=== PATIENT | male | born 1980 | race Caucasian/White ===

== ENCOUNTER 2020-05-01 10:33 | Inpatient (IN) | payer OTHER ==
--- NOTE | 2020-05-01 10:48 | BHS.RME ---
Substance Use & Tx History - Substance Use History Alcohol Substance amount: 1 pint vodka + beers Frequency of use: Daily Nicotine Substance amount: 1.5 pack Frequency of use: Daily Substance route: Smoking Date of Last Use: 05/01/20 Physical/Psych/Mental Status - Behavior General Behavior: Increased activity (restlessness, agitation) Eye Contact: Normal - Cooperativeness Cooperativeness: Cooperative - Thinking Thought Processes: Tight, Logical, Goal Directed Thought content: Future oriented - Physical Health Problems Is patient presently having any pain?: No Does patient presently have any injuries (include location): No Does patient currently have a fever: No Is patient : No CIWA Nausea/Vomitin-No Nausea/No Vomiting Muscle Tremors: 1-None Visible, but [place] Anxiety: 0-No Anxiety, at Ease Agitation: 0-Normal Activity Paroxysmal Sweats: 1-Minimal Palms Moist Orientation: 0-Oriented Tacttile Disturbances: 0-None Auditory Disturbances: 0-None Visual Disturbances: 0-None Headache: 0-None Present CIWA-Ar Total Score: 2
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
[2020-05-01] MEDS ORDERED: ONDANSETRON *ODT* 4 MG TABLET SL PRN (12:02)
[2020-05-01] MEDS ORDERED: ACETAMINOPHEN 325 MG TABLET (FP) PO PRN ×2 (12:02)
[2020-05-01] MEDS ORDERED: MAG HYDROX/AL HYDROX/SIMETH 30 ML UNIT-DOSE CUP PO PRN (12:02)
[2020-05-01] MEDS ORDERED: BISMUTH SUBSALICYLATE 524 MG/30 ML UD PO PRN (12:02)
[2020-05-01] MEDS ORDERED: MAGNESIUM CITRATE 300 ML BOTTLE PO PRN (12:02)
[2020-05-01] MEDS ORDERED: NICOTINE POLACRILEX 2 MG GUM BUC PRN (12:02)
[2020-05-01] MEDS ORDERED: MENTHOL/PHENOL 1 EACH UD MM PRN (12:02)
[2020-05-01] MEDS ORDERED: IBUPROFEN 400 MG TABLET (FP) PO PRN (12:02)
--- NOTE | 2020-05-01 12:43 | EKG ---
Test Reason : Blood Pressure : / mmHG Vent. Rate : 084 BPM Atrial Rate : 084 BPM P-R Int : 152 ms QRS Dur : 102 ms QT Int : 388 ms P-R-T Axes : 062 004 024 degrees QTc Int : 458 ms NORMAL SINUS RHYTHM INCOMPLETE RBBB BORDERLINE ECG Confirmed by MD MARTHA, KODY ([id number]) on 05/01/2020 12:43:19 PM Referred By: Confirmed By:KODY THOMAS MD
[2020-05-01 13:30] VITALS: BMI 26.6
[2020-05-01] MEDS: hydrOXYzine PAMOATE 25 MG CAPSULE (FP) PO SCH ×3 (14:22→21:34)
[2020-05-01] MEDS: NICOTINE 21 MG/24 HOURS TOPICAL PATCH TD SCH (14:27)
--- NOTE | 2020-05-01 14:43 | CONSULT ---
[facility] Psychiatric Consult - Data Date of interview: 05/01/20 Admission source: [facility] Identifying data: Mr Guzman is a 39 years old male, unemployed, homeless seeking detox treatment for alcohol Substance Abuse History: Reports history of alcohol use. Refer to addiction counselor's summary for further information Medical History: Unremarkable. Smokes cigarettes 1-1.5 ppd Psychiatric History: This is patient's first admission to this facility. He reports that his first psychiaric contact occured in December [address] Pacheco in [place], [place], diagnosed with Bipolar Disorder and started on Seroquel. Reports psychiatric treatment on & off since. Reports one psychiatric hospitalization in July 2019 at [facility] for suicidal attempt by ingesting sleeping pills. Reports 3 previous ED admissions. Most recent ED admission was in [facility] [place] in December 2019 for suicidal attempt by ingesting Seroquel. Reports that he is not currently receiving psychiatric treatment and has been off medication since discharged from [facility] in December 2019. At present, denies experiencing psychotic, manic symptoms, S/H ideations. However, reports feeling depressed and sleeping poorly. Patient is unwilling to take any psychotropic medication Physical/Sexual Abuse/Trauma History: Denies history of abuse as a child or DV relationship Mental Status Exam - Mental Status Exam Alert and Oriented to: Time, Place, Person Cognitive Function: Fair Patient Appearance: Disheveled Mood: Depressed, Anxious Affect: Appropriate Patient Behavior: Cooperative Speech Pattern: Clear Voice Loudness: Normal Thought Process: Intact, Goal Oriented Thought Disorder: Not Present Hallucinations: Denies Suicidal Ideation: Denies Homicidal Ideation: Denies Insight/Judgement: Poor Sleep: Fair Appetite: Good Muscle strength/Tone: Normal Gait/Station: Normal Psychiatric Findings - Problem List ([place] 1, 2,3) (1) MDD (major depressive disorder), recurrent episode, moderate Current Visit: Yes Status: Chronic (2) Bipolar II disorder Current Visit: Yes Status: Ruled-out (3) Alcohol-induced mood disorder Current Visit: Yes Status: Acute (4) Alcohol-induced anxiety disorder Current Visit: Yes Status: Acute (5) Alcohol-induced sleep disorder Current Visit: Yes Status: Acute (6) Alcohol dependence, uncomplicated Current Visit: Yes Status: Acute (7) Nicotine dependence Current Visit: Yes Status: Chronic - Initial Treatment Plan Initial Treatment Plan: Continue inpatient detoxification
[2020-05-01] MEDS: chlordiazePOXIDE HCL 25 MG CAPSULE PO SCH ×2 (16:47→22:04)
[2020-05-01 16:50] LABS: HEMATOCRIT 45.1 % (35.4-49); HEMOGLOBIN 15.2 GM/dL (11.7-16.9); MCH 33.1 pg (25.7-33.7); MCHC 33.8 g/dl (32.0-35.9); MEAN PLT VOLUME 7.5 fl (7.5-11.1); PLATELET COUNT 210 K/MM3 (134-434); RDW 15.8 % (11.9-15.9); WHITE BLOOD COUNT 5.2 K/mm3 (4.0-10.0)
[2020-05-01 17:01] LABS: ALBUMIN 4.2 g/dl (3.4-5.0); BILIRUBIN,TOTAL 0.5 mg/dL (0.2-1); BLOOD UREA NITROGEN 5.6 mg/dL (7-18); CALCIUM 8.5 mg/dL (8.5-10.1); CREATININE 0.9 mg/dL (0.55-1.3); POTASSIUM 4.4 mmol/L (3.5-5.1); TOT PROT 7.7 g/dl (6.4-8.2)
[2020-05-01] MEDS: chlordiazePOXIDE HCL 25 MG CAPSULE PO PRN (20:15)
[2020-05-01] MEDS: THIAMINE HCL 100 MG TABLET (FP) PO SCH (21:34)
[2020-05-01] MEDS: MELATONIN 5 MG TABLETS PO SCH (21:35)
[2020-05-02] MEDS: hydrOXYzine PAMOATE 25 MG CAPSULE (FP) PO SCH ×5 (05:42→22:00)
[2020-05-02] MEDS: chlordiazePOXIDE HCL 25 MG CAPSULE PO SCH ×4 (05:42→22:00)
[2020-05-02] MEDS: NICOTINE 21 MG/24 HOURS TOPICAL PATCH TD SCH (10:20)
[2020-05-02] MEDS: PRENATAL VITAMINS W/ FOLIC ACID TABLET (FP) PO SCH (10:20)
[2020-05-02] MEDS: chlordiazePOXIDE HCL 25 MG CAPSULE PO PRN (13:18)
--- NOTE | 2020-05-02 14:06 | PN ---
S CIWA - CIWA Score Nausea/Vomitin Muscle Tremors: 2 Anxiety: 2 Agitation: 2 Paroxysmal Sweats: No Perspiration Orientation: 0-Oriented Tacttile Disturbances: 1-Very Mild Itch/Numbness Auditory Disturbances: 0-None Visual Disturbances: 0-None Headache: 1-Very Mild CIWA-Ar Total Score: 10 S Progress Note (SOAP) Subjective: alert,irritable,anxious,interrupted sleep,tremor,pain in the body and back,nausea Objective: 05/02/20 14:04 Vital Signs Temperature 97.1 F L 05/02/20 08:41 Pulse Rate 85 05/02/20 08:41 Respiratory Rate 18 05/02/20 08:41 Blood Pressure 144/92 05/02/20 08:41 O2 Sat by Pulse Oximetry (%) 97 05/02/20 08:41 Laboratory Last Values WBC 5.2 K/mm3 (4.0-10.0) 05/01/20 12:00 RBC 4.60 M/mm3 (4.00-5.60) 05/01/20 12:00 Hgb 15.2 GM/dL (11.7-16.9) 05/01/20 12:00 Hct 45.1 % (35.4-49) 05/01/20 12:00 MCV 98.0 fl (80-96) H 05/01/20 12:00 MCH 33.1 pg (25.7-33.7) 05/01/20 12:00 MCHC 33.8 g/dl (32.0-35.9) 05/01/20 12:00 RDW 15.8 % (11.9-15.9) 05/01/20 12:00 Plt Count 210 K/MM3 (134-434) 05/01/20 12:00 MPV 7.5 fl (7.5-11.1) 05/01/20 12:00 Sodium 138 mmol/L (136-145) 05/01/20 12:00 Potassium 4.4 mmol/L (3.5-5.1) 05/01/20 12:00 Chloride 101 mmol/L (98-107) 05/01/20 12:00 Carbon Dioxide 27 mmol/L (21-32) 05/01/20 12:00 Anion Gap 10 MMOL/L (8-16) 05/01/20 12:00 BUN 5.6 mg/dL (7-18) L 05/01/20 12:00 Creatinine 0.9 mg/dL (0.55-1.3) 05/01/20 12:00 Est GFR (CKD-EPI)AfAm 122.52 05/01/20 12:00 Est GFR (CKD-EPI)NonAf 105.71 05/01/20 12:00 Random Glucose 82 mg/dL (74-106) 05/01/20 12:00 Calcium 8.5 mg/dL (8.5-10.1) 05/01/20 12:00 Total Bilirubin 0.5 mg/dL (0.2-1) 05/01/20 12:00 AST 63 U/L (15-37) H 05/01/20 12:00 ALT 55 U/L (13-61) 05/01/20 12:00 Alkaline Phosphatase 83 U/L (45-117) 05/01/20 12:00 Total Protein 7.7 g/dl (6.4-8.2) 05/01/20 12:00 Albumin 4.2 g/dl (3.4-5.0) 05/01/20 12:00 Syphilis Serology Non-reactive (NONREACTIVE) 05/01/20 12:00 Assessment: 05/02/20 14:05 withdrawal symptom Plan: continue detox librium regimen
[2020-05-02] MEDS: THIAMINE HCL 100 MG TABLET (FP) PO SCH (22:00)
[2020-05-02] MEDS: MELATONIN 5 MG TABLETS PO SCH (22:00)
[2020-05-02] MEDS: METHOCARBAMOL 500 MG TABLET PO PRN (22:01)
[2020-05-03] MEDS: chlordiazePOXIDE HCL 25 MG CAPSULE PO SCH ×4 (05:50→22:00)
[2020-05-03] MEDS: hydrOXYzine PAMOATE 25 MG CAPSULE (FP) PO SCH (05:50)
[2020-05-03] MEDS: PRENATAL VITAMINS W/ FOLIC ACID TABLET (FP) PO SCH (10:12)
[2020-05-03] MEDS: NICOTINE 21 MG/24 HOURS TOPICAL PATCH TD SCH (10:12)
--- NOTE | 2020-05-03 11:09 | PN ---
S CIWA - CIWA Score Nausea/Vomitin-Mild Nausea/No Vomiting Muscle Tremors: 2 Anxiety: 1-Mildly Anxious Agitation: 2 Paroxysmal Sweats: 2 Orientation: 0-Oriented Tacttile Disturbances: 0-None Auditory Disturbances: 0-None Visual Disturbances: 0-None Headache: 0-None Present CIWA-Ar Total Score: 8 BHS Progress Note (SOAP) Subjective: tired groggy sweats shakes body aches Objective: 05/03/20 11:07 Vital Signs Temperature 97.3 F L 05/03/20 08:49 Pulse Rate 96 H 05/03/20 08:49 Respiratory Rate 18 05/03/20 08:49 Blood Pressure 138/93 05/03/20 08:49 O2 Sat by Pulse Oximetry (%) 97 05/03/20 05:42 Laboratory Tests 05/01/20 05/01/20 05/01/20 12:00 12:00 12:00 WBC 5.2 RBC 4.60 Hgb 15.2 Hct 45.1 MCV 98.0 H MCH 33.1 MCHC 33.8 RDW 15.8 Plt Count 210 MPV 7.5 Sodium 138 Potassium 4.4 Chloride 101 Carbon Dioxide 27 Anion Gap 10 BUN 5.6 L Creatinine 0.9 Est GFR (CKD-EPI)AfAm 122.52 Est GFR (CKD-EPI)NonAf 105.71 Random Glucose 82 Calcium 8.5 Total Bilirubin 0.5 AST 63 H ALT 55 Alkaline Phosphatase 83 Total Protein 7.7 Albumin 4.2 Syphilis Serology Non-reactive COVID-19 ([facility]) 05/01/20 15:00 WBC RBC Hgb Hct MCV MCH MCHC RDW Plt Count MPV Sodium Potassium Chloride Carbon Dioxide Anion Gap BUN Creatinine Est GFR (CKD-EPI)AfAm Est GFR (CKD-EPI)NonAf Random Glucose Calcium Total Bilirubin AST ALT Alkaline Phosphatase Total Protein Albumin Syphilis Serology COVID-19 ([facility]) Not detected labs noted aaox3 lying in bed no acute distress Assessment: 05/03/20 11:07 withdrawals Plan: continue detox increase fluids
[2020-05-03] MEDS: hydrOXYzine PAMOATE 25 MG CAPSULE (FP) PO PRN ×2 (17:16→22:01)
[2020-05-03] MEDS: chlordiazePOXIDE HCL 25 MG CAPSULE PO PRN (19:33)
[2020-05-03] MEDS: METHOCARBAMOL 500 MG TABLET PO PRN (22:00)
[2020-05-03] MEDS: MELATONIN 5 MG TABLETS PO SCH (22:00)
[2020-05-03] MEDS: THIAMINE HCL 100 MG TABLET (FP) PO SCH (22:01)
[2020-05-04] MEDS ORDERED: chlordiazePOXIDE HCL 10 MG CAPSULE PO PRN
[2020-05-04] MEDS: chlordiazePOXIDE HCL 10 MG CAPSULE PO SCH ×4 (05:45→22:19)
[2020-05-04] MEDS: PRENATAL VITAMINS W/ FOLIC ACID TABLET (FP) PO SCH (10:11)
[2020-05-04] MEDS: NICOTINE 21 MG/24 HOURS TOPICAL PATCH TD SCH (10:12)
--- NOTE | 2020-05-04 13:42 | PN ---
S CIWA - CIWA Score Nausea/Vomitin-Mild Nausea/No Vomiting Muscle Tremors: 2 Anxiety: 2 Agitation: 2 Paroxysmal Sweats: No Perspiration Orientation: 0-Oriented Tacttile Disturbances: 0-None Auditory Disturbances: 0-None Visual Disturbances: 0-None Headache: 1-Very Mild CIWA-Ar Total Score: 8 BHS Progress Note (SOAP) Subjective: alert,irritable,anxious,interrupted sleep,body ache Objective: 05/04/20 13:41 Vital Signs Temperature 98.4 F 05/04/20 08:50 Pulse Rate 93 H 05/04/20 08:50 Respiratory Rate 18 05/04/20 08:50 Blood Pressure 137/88 05/04/20 08:50 O2 Sat by Pulse Oximetry (%) 96 05/04/20 05:43 Assessment: 05/04/20 13:42 withdrawal symptom Plan: continue detox librium regimen
[2020-05-04] MEDS: hydrOXYzine PAMOATE 25 MG CAPSULE (FP) PO PRN ×2 (14:24→18:39)
[2020-05-04] MEDS: MAGNESIUM HYDROX 2400MG/30ML ORAL SUSPENSION 30 ML CUP PO PRN (20:22)
[2020-05-04] MEDS: METHOCARBAMOL 500 MG TABLET PO PRN (22:19)
[2020-05-04] MEDS: MELATONIN 5 MG TABLETS PO SCH (22:19)
[2020-05-04] MEDS: THIAMINE HCL 100 MG TABLET (FP) PO SCH (22:19)
[2020-05-05] MEDS: chlordiazePOXIDE HCL 10 MG CAPSULE PO SCH ×2 (05:32→17:15)
[2020-05-05] MEDS: NICOTINE 21 MG/24 HOURS TOPICAL PATCH TD SCH (10:40)
[2020-05-05] MEDS: PRENATAL VITAMINS W/ FOLIC ACID TABLET (FP) PO SCH (10:40)
[2020-05-05] MEDS: METHOCARBAMOL 500 MG TABLET PO PRN ×2 (10:41→22:16)
[2020-05-05] MEDS: hydrOXYzine PAMOATE 25 MG CAPSULE (FP) PO PRN ×2 (10:41→22:15)
[2020-05-05] MEDS: MAGNESIUM HYDROX 2400MG/30ML ORAL SUSPENSION 30 ML CUP PO PRN ×2 (10:42→21:11)
--- NOTE | 2020-05-05 14:47 | PN ---
[facility] CIWA - CIWA Score Nausea/Vomitin-No Nausea/No Vomiting Muscle Tremors: None Anxiety: 2 Agitation: 1-Slight > Activity Paroxysmal Sweats: 2 Orientation: 0-Oriented Tacttile Disturbances: 0-None Auditory Disturbances: 0-None Visual Disturbances: 0-None Headache: 0-None Present CIWA-Ar Total Score: 5 BHS Progress Note (SOAP) Subjective: Complaints of mild anxiety and sweats. Objective: 05/05/20 14:45 Vital Signs 05/05/20 05/05/20 08:40 12:40 Temperature 97.7 F 97.7 F Pulse Rate 80 87 Respiratory 16 16 Rate Blood Pressure 134/90 133/91 O2 Sat by Pulse 98 98 Oximetry (%) Laboratory Last Values WBC 5.2 K/mm3 (4.0-10.0) 05/01/20 12:00 RBC 4.60 M/mm3 (4.00-5.60) 05/01/20 12:00 Hgb 15.2 GM/dL (11.7-16.9) 05/01/20 12:00 Hct 45.1 % (35.4-49) 05/01/20 12:00 MCV 98.0 fl (80-96) H 05/01/20 12:00 MCH 33.1 pg (25.7-33.7) 05/01/20 12:00 MCHC 33.8 g/dl (32.0-35.9) 05/01/20 12:00 RDW 15.8 % (11.9-15.9) 05/01/20 12:00 Plt Count 210 K/MM3 (134-434) 05/01/20 12:00 MPV 7.5 fl (7.5-11.1) 05/01/20 12:00 Sodium 138 mmol/L (136-145) 05/01/20 12:00 Potassium 4.4 mmol/L (3.5-5.1) 05/01/20 12:00 Chloride 101 mmol/L (98-107) 05/01/20 12:00 Carbon Dioxide 27 mmol/L (21-32) 05/01/20 12:00 Anion Gap 10 MMOL/L (8-16) 05/01/20 12:00 BUN 5.6 mg/dL (7-18) L 05/01/20 12:00 Creatinine 0.9 mg/dL (0.55-1.3) 05/01/20 12:00 Est GFR (CKD-EPI)AfAm 122.52 05/01/20 12:00 Est GFR (CKD-EPI)NonAf 105.71 05/01/20 12:00 Random Glucose 82 mg/dL (74-106) 05/01/20 12:00 Calcium 8.5 mg/dL (8.5-10.1) 05/01/20 12:00 Total Bilirubin 0.5 mg/dL (0.2-1) 05/01/20 12:00 AST 63 U/L (15-37) H 05/01/20 12:00 ALT 55 U/L (13-61) 05/01/20 12:00 Alkaline Phosphatase 83 U/L (45-117) 05/01/20 12:00 Total Protein 7.7 g/dl (6.4-8.2) 05/01/20 12:00 Albumin 4.2 g/dl (3.4-5.0) 05/01/20 12:00 Syphilis Serology Non-reactive (NONREACTIVE) 05/01/20 12:00 COVID-19 ([facility]) Not detected (Not Detected) 05/01/20 15:00 Labs noted. Assessment: 05/05/20 14:46 Alert and oriented x 3, in no acute respiratory distress. Full ROM, ambulating in the unit without assistance. Mild withdrawal. For D/c to [facility] in AM. Plan: Continue detox protocol. D/C to [facility] in AM.
[2020-05-05] MEDS: THIAMINE HCL 100 MG TABLET (FP) PO SCH (22:15)
[2020-05-05] MEDS: MELATONIN 5 MG TABLETS PO SCH (22:15)
[2020-05-06] MEDS ORDERED: chlordiazePOXIDE HCL 10 MG CAPSULE PO ONE (05:00)
[2020-05-06 08:06] VITALS: BP 126/78; PULSE 78; TEMP 97.7
--- NOTE | 2020-05-06 16:10 | DS ---
[facility] Detox Discharge Summary Admission Date: 05/01/20 Discharge Date: 05/06/20 - History Present History: Alcohol Dependence Additional Comments: Pt completed detox successfully and discharged safely in stable condition. Instructed to follow up with PCP within 1-2 weeks. Pertinent Past History: Alcohol dependence Nicotine dependence - Physical Exam Results Vital Signs: Vital Signs Temperature 97.7 F 05/06/20 05:55 Pulse Rate 78 05/06/20 05:55 Respiratory Rate 18 05/06/20 05:55 Blood Pressure 126/78 05/06/20 05:55 O2 Sat by Pulse Oximetry (%) 97 05/06/20 05:55 Pertinent Admission Physical Exam Findings: Withdrawal sxs Laboratory Tests 05/01/20 05/01/20 05/01/20 12:00 12:00 12:00 WBC 5.2 RBC 4.60 Hgb 15.2 Hct 45.1 MCV 98.0 H MCH 33.1 MCHC 33.8 RDW 15.8 Plt Count 210 MPV 7.5 Sodium 138 Potassium 4.4 Chloride 101 Carbon Dioxide 27 Anion Gap 10 BUN 5.6 L Creatinine 0.9 Est GFR (CKD-EPI)AfAm 122.52 Est GFR (CKD-EPI)NonAf 105.71 Random Glucose 82 Calcium 8.5 Total Bilirubin 0.5 AST 63 H ALT 55 Alkaline Phosphatase 83 Total Protein 7.7 Albumin 4.2 Syphilis Serology Non-reactive COVID-19 ([facility]) 05/01/20 15:00 WBC RBC Hgb Hct MCV MCH MCHC RDW Plt Count MPV Sodium Potassium Chloride Carbon Dioxide Anion Gap BUN Creatinine Est GFR (CKD-EPI)AfAm Est GFR (CKD-EPI)NonAf Random Glucose Calcium Total Bilirubin AST ALT Alkaline Phosphatase Total Protein Albumin Syphilis Serology COVID-19 ([facility]) Not detected Labs reviewed: AST 63 (high), most likely due to alcoholism, encouraged abstinence, follow up with PCP for monitoring - Treatment Hospital Course: Detox Protocol Followed, Detoxed Safely, Responded well, Discharged Condition Good - Medication Discharge Medications: Ambulatory Orders NK [No Known Home Medication] 05/01/20 - Diagnosis (1) Alcohol dependence, uncomplicated Status: Acute (2) Nicotine dependence Status: Chronic (3) Transaminitis Status: Acute - AMA Did Patient Leave Against Medical Advice: No (Instructed to follow up with PCP within 1-2 weeks)
== END 2020-05-06 09:20 | disposition home or self-care (01) | DRG 775 ==
LOC: YASAS 10:33 → Y6N 13:45
PROVIDERS: ADMIT Allergy & Immunology; ATTEND Allergy & Immunology
PROC: HZ2ZZZZ Detoxification Services for Substance Abuse Treatment (ICD-10-PCS; principal; 2020-05-01)
DX: F10.230 Alcohol dependence with withdrawal, uncomplicated (principal); F17.210 Nicotine dependence, cigarettes, uncomplicated; F33.1 Major depressive disorder, recurrent, moderate; F10.282 Alcohol dependence with alcohol-induced sleep disorder; F10.280 Alcohol dependence with alcohol-induced anxiety disorder; F10.24 Alcohol dependence with alcohol-induced mood disorder; Z91.5 Personal history of self-harm; Z56.0 Unemployment, unspecified; Z59.0 Homelessness
CPT/HCPCS: 36415; 80053; 85027; 86780; 93005; 93010; U0003